=== PATIENT | male | born 1980 | race Hispanic/Latino ===

== ENCOUNTER 2021-02-07 15:19 | Outpatient (CLI) | payer BC ==
[2021-02-08 11:55] LABS: SARS-CoV-2 PCR by NAA Not Detected (NotDetected)
== END 2021-02-07 15:20 | disposition home or self-care (01) ==
LOC: CSHLAB 15:19
PROVIDERS: ATTEND Internal Medicine Gastroenterology
DX: Z01.812 Encounter for preprocedural laboratory examination (principal); Z20.822 Contact with and (suspected) exposure to COVID-19
CPT/HCPCS: U0003; U0005

== ENCOUNTER 2021-02-15 17:30 | Outpatient (CLI) | payer BC ==
[2021-02-16 16:40] LABS: SARS-CoV-2 PCR by NAA Not Detected (NotDetected)
== END 2021-02-15 17:31 | disposition home or self-care (01) ==
LOC: CSHLAB 17:30
PROVIDERS: ATTEND Internal Medicine Gastroenterology
DX: Z20.822 Contact with and (suspected) exposure to COVID-19 (principal); K64.9 Unspecified hemorrhoids
CPT/HCPCS: U0003; U0005

== ENCOUNTER 2021-02-20 09:47 | Day surgery (SDC) | payer BC ==
[2021-02-18 13:42] VITALS: BMI 26.0
[2021-02-20] MEDS ORDERED: Lidocaine 1% MPF 2 ML VIAL ONE (09:58)
== END 2021-02-20 12:52 | disposition home or self-care (01) ==
LOC: CSHSDC 09:47
PROVIDERS: ATTEND Internal Medicine Gastroenterology
PROC: 0DJD8ZZ Inspection of Lower Intestinal Tract, Via Natural or Artificial Opening Endoscopic (ICD-10-PCS; principal; 2021-02-20)
DX: K92.1 Melena (principal); K64.9 Unspecified hemorrhoids; R10.9 Unspecified abdominal pain

== ENCOUNTER 2021-09-23 07:56 | Outpatient (CLI) | payer BC, OTHER ==
[2021-09-23] MEDS ORDERED: Iopamidol 300 61% 100 ML VIAL FS ONE (12:02)
== END 2021-09-23 07:57 | disposition home or self-care (01) ==
LOC: CSHCT 07:56
PROVIDERS: ATTEND Student in an Organized Health Care Education/Training Program
DX: R10.9 Unspecified abdominal pain (principal)
CPT/HCPCS: 74177

== ENCOUNTER 2024-11-12 09:01 | Outpatient (CLI) | payer OTHER | END 2024-11-12 09:02 | disposition home or self-care (01) | LOC: CSHULT 09:01 | PROVIDERS: ATTEND Family Medicine | DX: R10.9 Unspecified abdominal pain (principal); K76.0 Fatty (change of) liver, not elsewhere classified | CPT/HCPCS: 76700 ==